=== PATIENT | female | born 1960 | race Caucasian/White ===

== ENCOUNTER → 2017-06-05 | Outpatient (CLI) | payer OTHER ==
--- NOTE | 2017-06-05 15:22 | REP ---
CERVICAL SPINE SERIES: EIGHT VIEWS. HISTORY: Right-sided neck and arm pain. No injury. No comparison views. FINDINGS: Lateral views done in flexion/extension and neutral position show no subluxation or instability. Cervical vertebral body heights are preserved. Alignment is normal. There is degenerative disc narrowing and anterior and posterior osteophytic ridging at C5-6 and C4-5. This is most pronounced at C4-5. AP and open-mouth odontoid views are unremarkable. Oblique radiographs demonstrate intact neural foramina and normally aligned facets. There is mild uncovertebral spurring at C4-5 bilaterally. IMPRESSION: Mild degenerative spondylosis changes C4-5 and C5-6.
--- NOTE | 2017-06-05 15:22 | REP ---
THORACIC SPINE: AP and lateral views of the thoracic spine are performed. There is no compression fracture or malalignment with normal thoracic kyphosis. There is mild diffuse spurring. There is mild disc space narrowing and subchondral sclerosis at multiple levels diffusely. The posterior elements appear intact. There is minimal curvature convex to the right. IMPRESSION: Mild diffuse degenerative changes without compression fracture.
== END ==
LOC: M CLY 11:02
PROVIDERS: ATTEND Family Medicine
DX: M54.2 Cervicalgia (principal); M54.6 Pain in thoracic spine